=== PATIENT | male | born 1985 | race Hispanic/Latino ===

== ENCOUNTER 2018-12-10 20:08 | Emergency (ER) | payer BC ==
[2018-12-10 21:14] LABS: Urine Blood 1+ (NEG); Urine Glucose NEGATIVE (NEG); Urine Protein NEGATIVE (NEG); Urine Specific Gravity >1.030 (1.005-1.030); Urine pH 5.5 (5.0-7.0)
--- NOTE | 2018-12-10 21:29 | RAD REPORT ---
EXAM DESCRIPTION: US - Scrotum Testicles - 12/10/2018 9:05 pm CLINICAL HISTORY: Scrotal pain COMPARISON: None FINDINGS: Right testicle measures 4.4 x 2.1 x 2.8 centimeters. Echotexture is homogeneous. Normal bl ood flow Left testicle measures 3.9 x 1.9 x 2.8 centimeters. Echotexture is homogeneous. Normal blood flow The epididymides are normal in size and echotexture. Normal blood flow is seen. Left varicocele IMPRESSION: Left varicocele
[2018-12-10 21:55] LABS: Urine Bacteria <20 /HPF (NONE SEEN); Urine Culture Reflex Order NOT NEEDED; Urine Mucus SLIGHT /HPF (NONE SEEN); Urine RBC <5 /HPF (NONE SEEN)
[2018-12-10 22:03] LABS: Absolute Monocytes 0.7 K/uL (0.1-1.3); Hematocrit 48.1 % (39.6-49.0); Lymphocytes % 33.9 % (15.3-44.8); MPV 7.8 fL (7.6-11.3); Monocytes % 7.6 % (3.3-12.3); RBC Red Blood Cell Count 5.44 M/uL (4.33-5.43)
--- NOTE | 2018-12-10 22:14 | RAD REPORT ---
EXAM DESCRIPTION: CT - Stone Protocol - 12/10/2018 9:39 pm CLINICAL HISTORY: Abdominal pain. Right groin pain COMPARISON: 2014 TECHNIQUE: Computed axial tomography of the abdomen pelvis was obtained without oral or IV contrast. Lack of IV and oral contrast limits evaluation of solid organs, bowel, and vessels. Coronal reformat harshal images were obtained and reviewed. All CT scans are performed using dose optimization technique as appropriate and may include automated exposure control or mA/KV adjustment according to patient size. FINDINGS: A renal calculus is not seen. An ureteral calculus is not noted. A bladder calculus is not present. Fatty liver Spleen, pancreas and adrenals appear grossly normal There is no evidence of diverticulitis. The appendix appears normal Postsurgical changes of an umbilical hernia repair Moderate right inguinal hernia contains fat. A small left inguinal hernia is noted. Varicoceles are noted within the left scrotum IMPRESSION: Negative for a genitourinary calculus Moderate right and small left inguinal hernias Left varicocele
[2018-12-10 22:21] LABS: Albumin 4.1 g/dL (3.4-5.0); Bilirubin Direct 0.2 mg/dL (0-0.2); Bilirubin Total 0.6 mg/dL (0.2-1.0); Potassium 3.4 mmol/L (3.5-5.1); Protein, Total 7.8 g/dL (6.4-8.2)
--- NOTE | 2018-12-10 22:32 | EDPHYS ---
Physician Documentation [facility] Name: Herb Zarate Age: 33 yrs Sex: Male : 1985 Arrival Date: 12/10/2018 Time: 20:12 Bed 17 Private MD: ED Physician Raciel Miles HPI: 12/10 20:30 This 33 yrs old Male presents to ER via Ambulatory with complaints of cp Abdominal Pain. 20:30 The patient presents with right groin pain. cp 20:30 Onset: The symptoms/episode began/occurred 1 month(s) ago. The symptoms do not radiate. cp Associated signs and symptoms: Pertinent positives: intermittent right testicle pain, Pertinent negatives: diarrhea, dysuria, fever, shortness of breath, vomiting. Modifying factors: the symptoms are aggravated by walking. Severity of pain: in the emergency department the pain has improved mildly. 20:30 Patient reports concern for "growth" on right testicle. cp Historical: - Allergies: 20:13 No Known Allergies; jb4 - Home Meds: 20:13 None [Active]; jb4 - PMHx: 20:13 Umbilical hernia; jb4 - PSHx: 20:13 Hernia repair; jb4 - Immunization history:: Adult Immunizations up to date. - Social history:: Smoking status: Patient/guardian denies using tobacco, Patient uses alcohol, occasionally. - Ebola Screening: : No symptoms or risks identified at this time. ROS: 20:35 Constitutional: Negative for body aches, chills, fever, poor PO intake. cp 20:35 Eyes: Negative for injury, pain, redness, and discharge. cp 20:35 ENT: Negative for drainage from ear(s), ear pain, sore throat, difficulty swallowing, cp difficulty handling secretions. 20:35 Cardiovascular: Negative for chest pain, edema, palpitations. 20:35 Respiratory: Negative for cough, shortness of breath, wheezing. 20:35 Abdomen/GI: Negative for abdominal pain, nausea, vomiting, and diarrhea, black/tarry stool, rectal bleeding. 20:35 Back: Negative for pain at rest, pain with movement, radiated pain. 20:35 : Positive for testicular pain right groin pain, Negative for urinary symptoms, hematuria. 20:35 Skin: Negative for cellulitis, rash. 20:35 Neuro: Negative for altered mental status, headache, weakness. 20:35 All other systems are negative. Exam: 20:40 Constitutional: The patient appears in no acute distress, alert, awake, non-toxic, well cp developed, well nourished. 20:40 Head/Face: Normocephalic, atraumatic. cp 20:40 Eyes: Periorbital structures: appear normal, Conjunctiva: normal, no exudate, no injection, Sclera: no appreciated abnormality, Lids and lashes: appear normal, bilaterally. 20:40 ENT: External ear(s): are unremarkable, Nose: is normal, Mouth: Lips: moist, Oral mucosa: moist. 20:40 Chest/axilla: Inspection: normal. 20:40 Cardiovascular: Rate: normal, Rhythm: regular. 20:40 Respiratory: the patient does not display signs of respiratory distress, Respirations: normal, no use of accessory muscles, no retractions, no splinting, no tachypnea, Breath sounds: are clear throughout, no decreased breath sounds, no stridor, no wheezing. 20:40 Abdomen/GI: Inspection: abdomen appears normal, Bowel sounds: active, all quadrants, Palpation: abdomen is soft and non-tender, in all quadrants, rebound tenderness, is not appreciated, involuntary guarding, is not appreciated. 20:40 : Male external genitalia: Circumcision noted. swelling: is not appreciated, tenderness, of the right testicle is noted, that is mild. 20:40 Skin: cellulitis, is not appreciated, no rash present. Vital Signs: 20:13 BP 123 / 89; Pulse 88; Resp 16; Temp 97.9(O); Pulse Ox 95% on R/A; Weight 127.01 kg jb4 (R); Height 6 ft. 0 in. (182.88 cm) (R); Pain 2/10; 21:00 BP 115 / 88; Pulse 74; Resp 16; Pulse Ox 95% on R/A; jb4 22:00 BP 128 / 85; Pulse 82; Resp 16; Pulse Ox 95% on R/A; jb4 23:09 BP 124 / 79; Pulse 68; Resp 16; Pulse Ox 96% on R/A; jb4 20:13 Body Mass Index 37.97 (127.01 kg, 182.88 cm) jb4 MDM: 20:17 Patient medically screened. cp 21:30 Differential diagnosis: appendicitis, Testicular Torsion, Ureterolithiasis, urinary cp tract infection, epididymitis, orchitis, STD, hernia. 22:30 Data reviewed: vital signs, nurses notes, lab test result(s), radiologic studies, CT cp scan, ultrasound. 22:30 Counseling: I had a detailed discussion with the patient and/or guardian regarding: the cp historical points, exam findings, and any diagnostic results supporting the discharge/admit diagnosis, lab results, radiology results, the need for outpatient follow up, a general surgeon, to return to the emergency department if symptoms worsen or persist or if there are any questions or concerns that arise at home. Response to treatment: the patient's symptoms have markedly improved after treatment, and as a result, I will discharge patient. 12/10 20:24 Order name: Urine Microscopic Only; Complete Time: 22:23 cp 12/10 20:24 Order name: GC (GONORR/CHLAMYDIA) Probe cp 12/10 20:49 Order name: Urine Dipstick--Ancillary (enter results); Complete Time: 21:21 ds4 12/10 21:22 Interpretation: Normal except: USPGR >1.030; UBLD 1+. cp 12/10 21:22 Order name: Basic Metabolic Panel; Complete Time: 22:23 cp 12/10 22:23 Interpretation: Normal except: NA 146; K 3.4; CL 108; BUN 19; GFR 78. cp 12/10 21:22 Order name: CBC with Diff; Complete Time: 22:23 cp 12/10 22:24 Interpretation: Normal except: RBC 5.44. cp 12/10 21:22 Order name: Creatinine for Radiology; Complete Time: 22:23 cp 12/10 20:24 Order name: Urine Dipstick-Ancillary (obtain specimen); Complete Time: 20:33 cp 12/10 20:24 Order name: US Scrotum Testicles; Complete Time: 22:23 cp 12/10 21:22 Order name: CT Stone Protocol; Complete Time: 22:23 cp 12/10 21:22 Order name: Hepatic Function; Complete Time: 22:23 cp 12/10 22:24 Interpretation: Normal except: ALT 83; GLOB 3.7. cp 12/10 21:22 Order name: Lipase; Complete Time: 22:23 cp 12/10 21:22 Order name: IV Saline Lock; Complete Time: 21:58 cp 12/10 21:22 Order name: Labs collected and sent; Complete Time: 21:58 cp Administered Medications: 22:48 Drug: Rocephin (cefTRIAXone) 250 mg Route: IM; Site: right gluteus; jb4 23:08 Follow up: Response: No adverse reaction jb4 22:49 Drug: Zithromax 1 grams Route: PO; jb4 22:49 Follow up: Response: No adverse reaction jb4 22:49 Drug: Potassium Effervescent Tablet 25 mEq Route: PO; jb4 22:49 Follow up: Response: No adverse reaction jb4 Disposition: 12/11 03:30 Co-signature as Attending Physician, Raciel Miles MD. Disposition: 12/10/18 22:31 Discharged to Home. Impression: Bilateral inguinal hernia, without obstruction or gangrene. - Condition is Stable. - Discharge Instructions: Inguinal Hernia, Adult. - Medication Reconciliation Form, Thank You Letter, Antibiotic Education, Prescription Opioid Use form. - Follow up: Cortes Cates MD; When: 1 week; Reason: bilateral inguinal hernias. - Problem is new. - Symptoms have improved. Signatures: Dispatcher [employer] EDMS Tim Butler PA PA cp Melchor Rivera RN RN jb4 Starr, Gregory, MD MD Corrections: (The following items were deleted from the chart) 12/10 23:11 22:31 12/10/2018 22:31 Discharged to Home. Impression: Bilateral inguinal hernia, jb4 without obstruction or gangrene. Condition is Stable. Forms are Medication Reconciliation Form, Thank You Letter, Antibiotic Education, Prescription Opioid Use. Follow up: Cortes Cates; When: 1 week; Reason: bilateral inguinal hernias. Problem is new. Symptoms have improved. cp
--- NOTE | 2018-12-10 22:32 | ER ---
Nurse's Notes [facility] Name: Herb Zarate Age: 33 yrs Sex: Male : 1985 Arrival Date: 12/10/2018 Time: 20:12 Bed 17 Private MD: Diagnosis: Bilateral inguinal hernia, without obstruction or gangrene Presentation: 12/10 20:13 Presenting complaint: Patient states: I have been having groin pain for about a month jb4 now. It comes and goes, but I mostly notice it in the mornings and when I am walking. I also noticed what felt like a growth on my testicle about a month ago. 20:13 Transition of care: patient was not received from another setting of care. Onset of jb4 symptoms was October 16, 2018. Risk Assessment: Do you want to hurt yourself or someone else? Patient reports no desire to harm self or others. Initial Sepsis Screen: Does the patient meet any 2 criteria? No. Patient's initial sepsis screen is negative. Does the patient have a suspected source of infection? No. Patient's initial sepsis screen is negative. Care prior to arrival: None. 20:13 Method Of Arrival: Ambulatory jb4 20:13 Acuity: KEYSHAWN 3 jb4 Triage Assessment: 20:13 General: Appears in no apparent distress. comfortable, Behavior is calm, cooperative, jb4 appropriate for age. Pain: Complains of pain in groin Pain does not radiate. Pain currently is 2 out of 10 on a pain scale. at worst was 10 out of 10 on a pain scale. Quality of pain is described as When It is at its worst it feels like needles. It currently feels like a burning, numb, tingling sensation. Pain began 1 month ago. Is intermittent. EENT: No signs and/or symptoms were reported regarding the EENT system. Neuro: Level of Consciousness is awake, alert, obeys commands, Oriented to person, place, time, situation. Cardiovascular: Patient's skin is warm and dry. Respiratory: Airway is patent Respiratory effort is even, unlabored, Respiratory pattern is regular, symmetrical. GI: No signs and/or symptoms were reported involving the gastrointestinal system. : Reports Scrotal pain that has been present for one month. It worsens with movent and is worst after waking. Derm: Skin is intact, Skin is pink, warm \T\ dry. Musculoskeletal: Circulation, motion, and sensation intact. Historical: - Allergies: 20:13 No Known Allergies; jb4 - Home Meds: 20:13 None [Active]; jb4 - PMHx: 20:13 Umbilical hernia; jb4 - PSHx: 20:13 Hernia repair; jb4 - Immunization history:: Adult Immunizations up to date. - Social history:: Smoking status: Patient/guardian denies using tobacco, Patient uses alcohol, occasionally. - Ebola Screening: : No symptoms or risks identified at this time. Screenin:13 Abuse screen: Denies threats or abuse. Nutritional screening: No deficits noted. jb4 Tuberculosis screening: No symptoms or risk factors identified. Fall Risk None identified. Assessment: 20:13 General: See triage assessment.. jb4 21:00 Reassessment: Patient appears in no apparent distress at this time. Patient and/or jb4 family updated on plan of care and expected duration. Pain level reassessed. Patient is alert, oriented x 3, equal unlabored respirations, skin warm/dry/pink. 22:04 Reassessment: Patient appears in no apparent distress at this time. Patient and/or jb4 family updated on plan of care and expected duration. Pain level reassessed. Patient is alert, oriented x 3, equal unlabored respirations, skin warm/dry/pink. 22:48 Reassessment: Pt is on shot time. jb4 23:09 Reassessment: Patient appears in no apparent distress at this time. Patient and/or jb4 family updated on plan of care and expected duration. Pain level reassessed. Patient is alert, oriented x 3, equal unlabored respirations, skin warm/dry/pink. Vital Signs: 20:13 BP 123 / 89; Pulse 88; Resp 16; Temp 97.9(O); Pulse Ox 95% on R/A; Weight 127.01 kg jb4 (R); Height 6 ft. 0 in. (182.88 cm) (R); Pain 2/10; 21:00 BP 115 / 88; Pulse 74; Resp 16; Pulse Ox 95% on R/A; jb4 22:00 BP 128 / 85; Pulse 82; Resp 16; Pulse Ox 95% on R/A; jb4 23:09 BP 124 / 79; Pulse 68; Resp 16; Pulse Ox 96% on R/A; jb4 20:13 Body Mass Index 37.97 (127.01 kg, 182.88 cm) jb4 ED Course: 20:12 Patient arrived in ED. es 20:13 Arm band placed on right wrist. jb4 20:13 Patient has correct armband on for positive identification. Placed in gown. Bed in low jb4 position. Call light in reach. Side rails up X 1. Pulse ox on. NIBP on. 20:14 Melchor Rivera RN is Primary Nurse. jb4 20:14 Tim Butler PA is PHCP. cp 20:14 Raciel Miles MD is Attending Physician. cp 20:29 Triage completed. jb4 20:46 Urine Microscopic Only Sent. ds4 21:04 Ultrasound completed. Patient tolerated well. aa4 21:09 US Scrotum Testicles In Process Unspecified. EDMS 21:39 CT Stone Protocol In Process Unspecified. EDMS 21:39 CT completed. Patient tolerated procedure well. Patient moved to CT. Patient moved back hi from CT. 21:50 Inserted saline lock: 20 gauge in right antecubital area, using aseptic technique. ds4 Blood collected. 21:58 Lipase Sent. ds4 21:58 Hepatic Function Sent. ds4 21:58 Creatinine for Radiology Sent. ds4 21:58 CBC with Diff Sent. ds4 21:58 Basic Metabolic Panel Sent. ds4 22:30 Cortes Cates MD is Referral Physician. cp 23:09 No provider procedures requiring assistance completed. IV discontinued, intact, jb4 bleeding controlled. Administered Medications: 22:48 Drug: Rocephin (cefTRIAXone) 250 mg Route: IM; Site: right gluteus; jb4 23:08 Follow up: Response: No adverse reaction jb4 22:49 Drug: Zithromax 1 grams Route: PO; jb4 22:49 Follow up: Response: No adverse reaction jb4 22:49 Drug: Potassium Effervescent Tablet 25 mEq Route: PO; jb4 22:49 Follow up: Response: No adverse reaction jb4 Outcome: 22:31 Discharge ordered by . cp 23:09 Discharged to home ambulatory, with significant other. jb4 23:09 Condition: stable 23:09 Discharge instructions given to patient, significant other, Instructed on discharge instructions, follow up and referral plans. Demonstrated understanding of instructions, follow-up care. 23:11 Patient left the ED. jb4 Signatures: Dispatcher [employer] EDRuthie Arenas Amanda aa4 Joseph Rosenthal ds4 Tim Butler PA PA cp Bryson, James, RN RN jb4 Johnie Banda Corrections: (The following items were deleted from the chart) 23:11 20:13 : No signs and/or symptoms were reported regarding the genitourinary system. [id number]
[2018-12-10] MEDS ORDERED: CEFTRIAXONE 250 MG/VIAL ONE (22:45)
[2018-12-10] MEDS ORDERED: AZITHROMYCIN 250 MG TAB ONE (22:45)
[2018-12-10] MEDS ORDERED: WATER FOR INJ,STERILE 10 ML ONE (22:45)
[2018-12-10] MEDS ORDERED: POTASSIUM 25 MEQ EFFERV TAB ONE (22:45)
[2018-12-10 23:23] VITALS: TEMP 97.9
[2018-12-10 23:27] VITALS: BP 124/79; O2SAT 96
[2018-12-14 18:30] LABS: C.trachomatis RNA,TMA Not Detected (Not Detected)
== END 2018-12-10 23:11 | disposition home or self-care (01) ==
LOC: ER 20:08
DX: K40.20 Bilateral inguinal hernia, without obstruction or gangrene, not specified as recurrent (principal)
CPT/HCPCS: 36415; 74176; 76377; 76870; 80048; 80076; 81003; 81015; 83690; 85025; 87490; 87590; 96372; 99284; J0696

== ENCOUNTER 2024-11-10 10:24 | Emergency (ER) | payer BC, OTHER ==
--- OUTSIDE RECORDS SUMMARY | 2024-11-10 10:27 | XMS REPORT | Continuity of Care Document ---
Author Name Unknown Address [address] [place] [address] [facility] thconnect Address [address] [place] [address] Care Team Providers Care Freight Flow Sales Leader Name Role Phone Pcp, Patient Does Not Have A Primary Care Physic pippa Campaigns, Generic Provider Attending Clinician Unavailable GERMÁN RICE Attending Clinician Unavailable EGRMÁN RICE Attending Clinician Unavailable Germán Tamayo Attending Clinician [phone] GERMÁN RICE Admitting Clinician Unavailable Payers Payer Name Policy Type Policy Number Effective Date Expirati on Date Source Allergies, Adverse Reactions, Alerts Allergy Name Allergy Type Status Severity Reaction(s) Onset Date Inactive Date Treating Clinician Comments Source NO KNOWN ALLERGIE S Drug Class Active [facility] Social History Social Habit Start Date Stop Date Quantity Comments Source Sexual orientation U [facility] Sex assigned at 1985 00:00:00 1985 00:00:00 [facility] Smoking Status Start Date Stop Date Source Tobacco smoking consumption unknown [facility] Medications Ordered Medication Name Filled Medication Name Start Date Stop Date Current Medication? Ordering Clinician Indication Dosage Frequency Signature (SIG) Comments Components Source ketorolac (TORADOL) injection 30 mg 08-12 14:15: 00 08-12 13:51 :00 No 30mg 30 mg, Slow IV Push, ONCE, 1 dose, On Thu08/12/24 at 0915, Routine [facility] NaCl 0.9% (NS) bolus infusion 1,000 mL 08-12 14:15: 00 08-12 16:54 :00 No 1000mL at 999 mL/hr, 1,000 mL, IV Infusion, ONCE, 1 dose, On Thu08/12/24 at 0915, MARTA [facility] iopamidol (ISOVUE 370-500 mL) injection 85 mL 08-12 14:00: 00 08-12 14:15 :00 No [id number] 85mL 85 mL, Intravenou s, ONCE, 1 dose, On Thu08/12/24 at 0915, Routine [facility] naproxen 500 mg EC tablet 08-12 00:00: 00 Yes [id number] 500mg Take 1 tablet by mouth 2 (two) times daily as needed for Pain (scale 4-6). [facility] docusate (COLACE) 100 mg capsule 2014-11 00:00: 00 Yes 100mg Take 1 Cap by mouth daily. [facility] traMADOL (ULTRAM) 50 mg tablet 2014-11 00:00: 00 Yes 50mg Take 1 Tab by mouth every 6 (six) hours as needed for Pain (scale 4-6). [facility] Immunizations Ordered Immunization Name Filled Immunization Name Date Status Comments Source SARS-COV-2 COVID-19 MODERNA 12+ YRS VACCINE 2021-02-18 00:00:00 Completed [facility] SARS-COV-2 COVID-19 MODERNA 12+ YRS VACCINE 2021-02-18 00:00:00 Completed [facility] SARS-COV-2 COVID-19 MODERNA 12+ YRS VACCINE 2021-01-21 00:00:00 Completed [facility] SARS-COV-2 COVID-19 MODERNA 12+ YRS VACCINE 2021-01-21 00:00:00 Completed [facility] Vital Signs Vital Name Observation Time Observation Value Comments S ource Systolic blood pressure 2024-08-12 16:55:00 120 mm[Hg] [facility] Diastolic blood pressure 2024-08-12 16:55:00 81 mm[Hg] [facility] Heart rate 2024-08-12 16:55:00 54 /min [facility] Body temperature 2024-08-12 16:55:00 36.89 Linda [facility] Respiratory rate 2024-08-12 16:55:00 14 /min [facility] Oxygen saturation in Arterial blood by Pulse oximetry 2024-08-12 16:55:00 100 /min [facility] Body height 2024-08-12 13:18:00 182.9 cm [facility] Body weight 2024-08-12 13:18:00 104.327 kg [facility] BMI 2024-08-12 13:18:00 31.19 kg/m2 [facility] Procedures Procedure Date / Time Performed Performing Clinicia n Source US TESTICULAR TORSION 2024-08-12 14:58:06 Stewart Rice [facility] CT ABDOMEN PELVIS W CONTRAST 2024-08-12 14:14:18 Germán Rice [facility] LIPASE 2024-08-12 13:50:00 Germán Rice [facility] COMP. METABOLIC PANEL (44308) 2024-08-12 13:50:00 Germán Rice [facility] CBC WITH DIFF 2024-08-12 13:50:00 Germán Rice [facility] URINALYSIS 2024-08-12 13:50:00 Germán Rice [facility] Encounters Start Date/Time End Date/Time Encounter Type Admission Type Attending Clinicians Care Facility Care Department Encounter ID Source 2024-08-24 00:00:00 2024-08-24 10:43:01 Letter (Out) Campaigns, Generic Provider Campaigns, Generic Provider [facility] ([facility]) [id number] [facility] 2024-08-12 08:21:00 2024-08-12 11:57:00 Emergency X GERMÁN RICE ERICCA [facility] ERT [id number] [facility] 2024-08-12 08:21:00 2024-08-12 11:57:00 Emergency Germán Rice [facility] [id number] [facility] Results Test Description Test Time Test Comments Results Resul t Comments Source US TESTICULAR TORSION 2024-07-18 15:26:05 EXAM: US TESTICULAR TORSION HISTORY: 38 years-old Male; Provided indication: R testicle swollen/pain,r/o torsion . TECHNIQUE: Ultrasound imaging with color and spectral Doppler of thescrotum was performed. Nursing Manager images were obtained for the record. COMPARISON: Same date earlier CT abdomen pelvis FINDINGS:Right Testicle: The right testicle is normal in size, shape, andechotexture. The right testicle measures 4.1 x 2.4 x 3.1 cm, with a volumeof 16.1 mL. Normal arterial and venous waveforms are visualized. Normalflow is seen on color Doppler. No focal lesion is seen. Left Testicle: The left testicle is normal in size, shape, and echotexture.The left testicle measures 4.1 x 2 x 2.8 cm, with a volume of 11.8 mL.Normal arterial and venous waveforms are visualized. Normal flow is seen oncolor Doppler. No focal lesion is seen. Right Epididymis: The right epididymal head is normal in size anddemonstrates normal blood flow. Left Epididymis: The left epididymal head is normal in size anddemonstrates normal blood flow. There is bilateral fat-containing inguinal hernia, extending to thescrotum, more evident on the right.Left sided varicocele is also seen. [facility] CT ABDOMEN PELVIS W CONTRAST 2024-07-18 15:13:44 Ordering Physician: GERMÁN RICE History: RLQ abdominal pain (Age >= 14y) . Technique: CT of the abdomen and pelvis with IV Contrast.CT Scan done according to ALARA (As Low As Reasonably Achievable.) Comparison: none Findings: Spleen is normal. Adrenals are normal. Pancreas is normal.Gallbladder is normal.Liver is normal. There is no intrahepatic or extrahepatic biliary dilation. Kidneys enhance normally without hydronephrosis. Aorta is of normal caliber. Circumaortic left renal vein. Normal appendix. There is no bowel obstruction. There is no free gas. There is nosignificant adenopathy. Bilateral fat-containing inguinal hernias. Urinary bladder is normal. Prostate and seminal vesicles are normal. Limited views of the lung bases reveal mild bilateral posterior dependentatelectasis . Mild degenerative changes in the spine. [facility]* Test Item Value Reference Range Interpretation Comme nts LIPASE (test code = 2119230333) 105 U/L 0-220 Lab Interpretation (test cod e = 16593-3) Normal [facility] WITH [id number] 14:15:26* Test Item Value Reference Range Interpretation Comme nts WBC (test code = 6690-2) 6.08 4.20-10.70 RBC (test code = 789-8) 4.81 4.26-5.52 HGB (test code = 718-7) 14.3 g/dL 12.2-16.4 HCT (test code = 4544-3) 42.4 % 38.4-49.3 MCV (test code = 787-2) 88.1 fL 81.7-95.6 MCH (test code = 785-6) 29.7 pg 26.1-32.7 MCHC (test code = 786-4) 33.7 g/dL 31.2-35.0 RDW-SD (test code = 56748-1) 39.4 fL 38.5-51.6 RDW-CV (test code = 788-0) 12.2 % 12.1-15.4 PLT (test code = 777-3) 328 150-328 MPV (test code = 20925-1) 8.6 fL 9.8-13.0 L NRBC/100 WBC (test code = 1091730015) 0.0 0.0-10.0 NRBC x10^3 (test code = 8983715010) See_Comment [Automated messa ge] The system which generated this result transmitted reference range: 10*3/?L. The reference range was not used to interpret this result as normal/abnormal. GRAN MAT (NEUT) % (test code = 770-8) 56.0 % IMM GRAN % (test code = 7180221834) 0.70 % LYMPH % (test code = 736-9) 32.4 % MONO % (test code = 5905-5) 7.9 % EOS % (test code = 713-8) 2.5 % BASO % (test code = 706-2) 0.5 % GRAN MAT x10^3(ANC) (test code = 7014370849) 3.41 10*3/uL 1.99-6.95 IMM GRAN x10^3 (test code = 8549137758) 0.04 10*3/uL 0.00-0.06 LYMPH x10^3 (test code = 731-0) 1.97 10*3/uL 1.09-3.23 MONO x10^3 (test code = 742-7) 0.48 10*3/uL 0.36-1.02 EOS x10^3 (test code = 711-2) 0.15 10*3/uL 0.06-0.53 BASO x10^3 (test code = 704-7) 0.03 10*3/uL 0.01-0.09 Lab Interpretation (test code = 99236-8) Abnormal [facility]
[2024-11-10] MEDS ORDERED: MORPHINE 4 MG/ML SYR ONE (11:13)
[2024-11-10] MEDS ORDERED: ONDANSETRON 4 MG/2 ML VIAL ONE (11:13)
[2024-11-10] MEDS ORDERED: NA CHLORIDE 0.9% 1,000 ML ONE (11:13)
[2024-11-10 11:36] LABS: Absolute Eosinophils 0.1 K/uL (0-0.5); Absolute Lymphocytes (CBC) 1.4 K/uL (0.7-4.9); Absolute Monocytes 0.3 K/uL (0.1-1.3); Absolute Neutrophil 3.2 K/uL (1.8-8.0); Basophils % 0.8 % (0-1.3); Eosinophils % 2.4 % (0-4.4); Hematocrit 43.9 % (39.6-49.0); Hemoglobin 14.8 g/dL (13.6-17.9); Lymphocytes % 27.9 % (15.3-44.8); MCH 29.8 pg (27.0-35.0); MCHC 33.8 g/dL (32.0-36.0); MCV 87.9 fL (80-100); MPV 7.6 fL (7.6-11.3); Monocytes % 6.8 % (3.3-12.3); Neutrophils % 62.1 % (41.7-73.7); Platelets 239 thou/uL (152-406); RBC Red Blood Cell Count 4.99 M/uL (4.33-5.43); Red Cell Distribution Width 13.4 % (12.1-15.2)
[2024-11-10 11:55] LABS: Albumin 3.8 g/dL (3.4-5.0); Albumin/Globulin Ratio 1.2 (1.1-1.8); Anion Gap 5.7 mEq/L (5.0-15.0); Bilirubin Total 0.8 mg/dL (0.2-1.0); Globulin 3.3 g/dL (2.3-3.5); Potassium 3.7 mEq/L (3.5-5.1); Protein, Total 7.1 g/dL (6.4-8.2)
--- NOTE | 2024-11-10 12:17 | RAD REPORT ---
EXAMINATION: CT Abdomen Pelvis W Contrast CLINICAL INDICATION: Male, 39 years old. hx inguinal hernia, no BM with nausea;Abd pain TECHNIQUE: CT abdomen and pelvis was performed, after the administration of IV contrast, [facility]. Axial, sagittal and coronal reconstructions were obtained. One or more of the following dose reduction techniques were used: Automated exposure control, adjustment of the mA and k V according to patient size, and iterative reconstruction. Unless otherwise specified, incidental findings do not require dedicated imaging follow-up. COMPARISON: 12/10/2018 FINDINGS: LOWER CHEST: The visualized lung bases are clear. LIVER: Normal in size and contour. No focal lesion. BILIARY SYSTEM: No suspicious abnormalities. SPLEEN: Normal size. No focal lesion. PANCREAS: No mass, ductal dilation, or tatianna-pancreatic fluid. ADRENALS: Normal; no mass. KIDNEYS: Normal size and contour. No hydronephrosis. URINARY BLADDER: Decompressed limiting evaluation. GASTROINTESTINAL TRACT: No evidence of free air, significant intra-abdominal free fluid, bowel obstru ction or abscess. APPENDIX: Normal appendix. LYMPH NODES: No lymphadenopathy. MUSCULOSKELETAL: No acute or suspicious osseous abnormality. ADDITIONAL FINDINGS: Progressive enlargement of the right fat-containing inguinal hernia, with its sc rotal component now measuring 5.3 x 4.2 cm in greatest axial dimensions, previously measured 4.6 x 3.5 cm. Protrusion of nondistended sigmoid colon towards the inguinal ring, with no evidence of desce nt along the canal. IMPRESSION: Interval enlargement of the fat-containing right inguinal hernia extending to the scrotum. A loop of the nondistended sigmoid colon protrudes towards the inguinal ring, with no evidence of the stent along the inguinal canal. No evidence of bowel obstruction or ileus.
[2024-11-10 12:23] LABS: Specific Gravity > 1.030 (1.005-1.030); Sqamous Epithelial None Seen /HPF (None Seen); Urine Bacteria None Seen /HPF (<20); Urine Bilirubin NEGATIVE (Negative); Urine Blood Negative (Negative); Urine Clarity Clear (Clear); Urine Color Yellow (Yellow); Urine Culture Reflex Order NOT NEEDED; Urine Glucose NEGATIVE (Negative); Urine Ketones NEGATIVE (Negative); Urine Microscopic Reflex YN ORDER UMIC; Urine Mucus 1+ /HPF (None Seen); Urine Nitrite NEGATIVE (Negative); Urine Protein TRACE (Negative); Urine Urobilinogen Normal (Normal); Urine WBC None Seen /HPF (<5)
--- NOTE | 2024-11-10 13:02 | EDPHYS ---
Physician Documentation [facility] Name: Herb Zarate Age: 39 yrs Sex: Male : 1985 Arrival Date: 11/10/2024 Time: 10:24 Bed 5 Private MD: ED Physician Bess Wilhelm HPI: 11/10 11:05 This 39 yrs old Male presents to ER via Ambulatory with complaints of Groin sd2 Pain. 11:05 39 yo M presents with CC of R groin pain for the past 2-3 days with inability to have a sd2 BM and nausea for the same period of time. Hx of inguinal hernia to the area. Was told at [place] it would need to be repaired 2-3 weeks ago but has not been able to make it in for an appointment. Took Ibuprofen at home this morning without relief. . Historical: - Allergies: 10:30 No Known Allergies; iw - Home Meds: 10:30 None [Active]; iw - PMHx: 10:30 Umbilical hernia; iw - PSHx: 10:30 hernia; iw - Immunization history:: Adult Immunizations up to date. - Infectious Disease History:: Denies. - Social history:: Smoking status: Reported history of juuling and/or vaping. ROS: 11:05 Constitutional: Negative for fever, chills, and weight loss, Eyes: Negative for injury, sd2 pain, redness, and discharge, Cardiovascular: Negative for chest pain, palpitations, and edema, Respiratory: Negative for shortness of breath, cough, wheezing. 11:05 : Negative for dysuria, frequency or hematuria. MS/Extremity: Negative for injury and deformity, Skin: Negative for injury, rash, and discoloration, Neuro: Negative for headache, numbness and tingling. 11:05 Abdomen/GI: Positive for abdominal pain, nausea, constipation, Negative for vomiting, diarrhea, Exam: 11:05 Constitutional: This is a well developed, well nourished patient who is awake, alert, sd2 and in no acute distress. Head/Face: Normocephalic, atraumatic. Eyes: EOMI, normal conjunctiva bilaterally Chest/axilla: Normal chest wall appearance and motion. Nontender with no deformity. Cardiovascular: Regular rate and rhythm with a normal S1 and S2. No gallops, murmurs, or rubs. 2+ distal pulses. Respiratory: Lungs have equal breath sounds bilaterally, clear to auscultation and percussion. No rales, rhonchi or wheezes noted. No increased work of breathing, no retractions or nasal flaring. Abdomen/GI: Soft, non-tender, with normal bowel sounds. No guarding or rebound. No evidence of tenderness throughout. Male : Normal genitalia with no discharge or lesions. No scrotal swelling or edema. Palpable small inguinal hernia noted to the right side with associated TTP. No overlying skin changes. Skin: Warm, dry with normal turgor. Normal color with no rashes, no lesions, and no evidence of cellulitis. MS/ Extremity: Pulses equal, no cyanosis. Neurovascular intact. Full, normal range of motion. Psych: Awake, alert, with orientation to person, place and time. Behavior, mood, and affect are within normal limits. Vital Signs: 10:29 BP 129 / 84; Pulse 62; Resp 16; Temp 97.9; Pulse Ox 100% on R/A; Weight 99.79 kg; iw Height 6 ft. 0 in. ; Pain 10/10; 10:29 Body Mass Index 29.84 (99.79 kg, 182.88 cm) iw 10:29 Pain Scale: Adult iw MDM: 10:32 Medical Screening Exam initiated sd2 11:05 Differential diagnosis: incarcerated hernia, SBO, appendicitis, diverticulitis, colitis sd2 among others. Data reviewed: vital signs, nurses notes, lab test result(s), radiologic studies. I considered the following discharge prescriptions or medication management in the emergency department Medications were administered in the Emergency Department. See MAR. Historians other than the Patient: Spouse/Significant Other: at BS. 12:58 Management of patient was discussed with the following: Collection Systems Worker: Dr. Yeager, General sd2 Surgery, states no emergent surgical intervention needed based on CT findings. Recommends outpatient follow up and pain control. . Counseling: I had a detailed discussion with the patient and/or guardian regarding the historical points, exam findings, and any diagnostic results supporting the discharge/admit diagnosis, lab results, radiology results, the need for outpatient follow up, to return to the emergency department if symptoms worsen or persist or if there are any questions or concerns that arise at home. ED course: Advised patient of need for close follow up with General Surgery. Will dc with Tylenol #3 and Ibuprofen 800 mg. calling surgeon's office now to make follow up appointment. Pain well controlled at this time and hernia appears reduced. . 11/10 11:03 Order name: CBC with Diff; Complete Time: 12:35 sd2 11/10 11:03 Order name: CMP; Complete Time: 12:35 sd2 11/10 11:03 Order name: Lipase; Complete Time: 12:35 sd2 11/10 11:03 Order name: Urinalysis w/ reflexes; Complete Time: 12:35 sd2 11/10 11:03 Order name: CT Abd/Pelvis - IV Contrast Only; Complete Time: 12:35 sd2 Administered Medications: 11:28 Drug: morphine IVP or IV 4 mg IVP once over 4 mins Route: IVP; Infused Over: 4 mins; ko1 Site: right antecubital; 11:28 Drug: Ondansetron IVP 4 mg IVP once; over 2 minutes Route: IVP; Site: right antecubital;ko1 11:28 Drug: NS 0.9% IV 1000 ml IV at 1 bolus Per protocol; to be given as a bolus over 60 ko1 minutes Route: IV; Rate: 1 bolus; Site: right antecubital; 13:16 Drug: Hydrocodone-Acetaminophen PO (7.5 mg-325 mg) 1 tabs PO once Route: PO; iw Disposition Summary: 11/10/24 13:02 Discharge Ordered Problem: an acute exacerbation sd2 Condition: Stable sd2 Diagnosis - Unilateral inguinal hernia, without obstruction or gangrene sd2 Followup: sd2 - With: Jayy Yeager MD - When: Tomorrow - Reason: Recheck today's complaints, Continuance of care Discharge Instructions: - Discharge Summary Sheet sd2 Forms: - Work release form iw - Medication Reconciliation Form sd2 - Antibiotic Education sd2 - Prescription Opioid Use sd2 - Patient Portal Instructions sd2 - Leadership Thank You Letter sd2 Prescriptions: - acetaminophen-codeine 300-60 mg Oral tablet - take 1 tablet ORAL route every 4 to 6 hours as needed for pain; 12 tablet; sd2 Refills: 0, Product Selection Permitted - Ibuprofen 800 mg Oral tablet - take 1 tablet ORAL route every 8 hours As needed take with food; 15 tablet; sd2 Refills: 0, Product Selection Permitted Signatures: Dispatcher [employer] EDMS Johanna Lindsay, Bess Vazquez RN, MD MD sd2 Yecenia Crespo RN RN ko1 Corrections: (The following items were deleted from the chart) 11: 11:04 CBC+H.LAB.BRZ ordered. EDMS EDMS 11:04 11:04 COMPREHENSIVE METABOLIC PANEL+C.LAB.BRZ ordered. EDMS EDMS 11: 11:04 LIPASE+C.LAB.BRZ ordered. EDMS EDMS 11:04 11:04 Urinalysis+U.LAB.BRZ ordered. EDMS EDMS 11:04 11:04 Abdomen Pelvis W Con+CT.RAD.BRZ ordered. EDMS EDMS
--- NOTE | 2024-11-10 13:02 | ER ---
Nurse's Notes [facility] Name: Herb Zarate Age: 39 yrs Sex: Male : 1985 Arrival Date: 11/10/2024 Time: 10:24 Bed 5 Private MD: Diagnosis: Unilateral inguinal hernia, without obstruction or gangrene Presentation: 11/10 10:29 Chief complaint: Patient states: having extreme pain in my genitals and right abd/groin iw area , started Thursday , right testicle is enlarged. Coronavirus screen: At this time, the client does not indicate any symptoms associated with coronavirus-19. Ebola Screen: No symptoms or risks identified at this time. Initial Sepsis Screen: Does the patient meet any 2 criteria? No. Patient's initial sepsis screen is negative. Does the patient have a suspected source of infection? No. Patient's initial sepsis screen is negative. Risk Assessment: Do you want to hurt yourself or someone else? Patient reports no desire to harm self or others. Onset of symptoms was November 06, 2024. 10:29 Method Of Arrival: Ambulatory iw 10:29 Acuity: KEYSHAWN 3 iw Historical: - Allergies: 10:30 No Known Allergies; iw - Home Meds: 10:30 None [Active]; iw - PMHx: 10:30 Umbilical hernia; iw - PSHx: 10:30 hernia; iw - Immunization history:: Adult Immunizations up to date. - Infectious Disease History:: Denies. - Social history:: Smoking status: Reported history of juuling and/or vaping. Screenin:46 [facility] ED Fall Risk Assessment (Adult) History of falling in the last 3 months, ko1 including since admission No falls in past 3 months (0 pts) Confusion or Disorientation No (0 pts) Intoxicated or Sedated No (0 pts) Impaired Gait No (0 pts) Mobility Assist Device Used No (0 pt) Altered Elimination No (0 pt) Score/Fall Risk Level 0 - 2 = Low Risk Oriented to surroundings, Maintained a safe environment, Educated pt \T\ family on fall prevention, incl call for assistance when getting out of bed, Assessed \T\ reinforced patient's understanding of fall precautions, Hourly rounding (assess needs \T\ fall precautionary measures) done. Abuse screen: Denies threats or abuse. Denies injuries from another. Nutritional screening: No deficits noted. Tuberculosis screening: No symptoms or risk factors identified. Vital Signs: 10:29 BP 129 / 84; Pulse 62; Resp 16; Temp 97.9; Pulse Ox 100% on R/A; Weight 99.79 kg; iw Height 6 ft. 0 in. ; Pain 10/10; 10:29 Body Mass Index 29.84 (99.79 kg, 182.88 cm) iw 10:29 Pain Scale: Adult iw ED Course: 10:26 Patient arrived in ED. mr 10:27 Bess Wilhelm MD is Attending Physician. sd2 10:30 Triage completed. iw 10:31 Arm band placed on. iw 11:28 CMP Sent. ko1 11:28 Lipase Sent. ko1 11:28 CBC with Diff Sent. ko1 11:29 Yecenia Crespo, KAHLIL is Primary Nurse. ko1 11:29 Initial lab(s) drawn, by me, sent to lab. Inserted saline lock: 20 gauge in right ko1 antecubital area, using aseptic technique. Blood collected. Flushed with 10 mL NS. 11:46 Patient has correct armband on for positive identification. Placed in gown. Bed in low ko1 position. Call light in reach. Side rails up X2. Provided Education on: labs. Pulse ox on. NIBP on. Door closed. Noise minimized. Lights dimmed. Warm blanket given. Pillow given. 12:04 Urinalysis w/ reflexes Sent. ld1 12:08 CT Abd/Pelvis - IV Contrast Only In Process Unspecified. EDMS 13:01 Jayy Yeager MD is Referral Physician. sd2 Administered Medications: 11:28 Drug: morphine IVP or IV 4 mg IVP once over 4 mins Route: IVP; Infused Over: 4 mins; ko1 Site: right antecubital; 11:28 Drug: Ondansetron IVP 4 mg IVP once; over 2 minutes Route: IVP; Site: right antecubital;ko1 11:28 Drug: NS 0.9% IV 1000 ml IV at 1 bolus Per protocol; to be given as a bolus over 60 ko1 minutes Route: IV; Rate: 1 bolus; Site: right antecubital; 13:16 Drug: Hydrocodone-Acetaminophen PO (7.5 mg-325 mg) 1 tabs PO once Route: PO; iw Outcome: 13:02 Discharge ordered by MD. guerrero 13:30 Patient left the ED. iw Signatures: Dispatcher [employer] EDTiffanie Jordan, Saeid Breaux mr Johanna Lindsay, Michelle Hardy RN, RN RN [email or web address] Bess Wilhelm MD MD sd2 Yecenia Crespo, RN RN ko1
[2024-11-10] MEDS ORDERED: HYDROCODONE/APAP 7.5/325 MG TAB ONE (13:10)
[2024-11-10 13:34] VITALS: BP 129/84; TEMP 97.9; O2SAT 100
== END 2024-11-10 13:30 | disposition home or self-care (01) ==
LOC: ER 10:24
DX: K40.90 Unilateral inguinal hernia, without obstruction or gangrene, not specified as recurrent (principal)
CPT/HCPCS: 85025; 81001; 36415; 83690; 80053; 74177; 96375; 96374; 99284; Q9967; J2405; J7030

== ENCOUNTER 2024-11-10 18:02 | Emergency (ER) | payer OTHER ==
--- OUTSIDE RECORDS SUMMARY | 2024-11-10 18:05 | XMS REPORT | Continuity of Care Document ---
Author Name Unknown Address [address] [facility] [address] [place] [address] [facility] thconnect Address [address] [facility] [address] [place] [address] Care Team Providers Care Publications Manager Name Role Phone Pcp, Patient Does Not Have A Primary Care Physic pippa Campaigns, Generic Provider Attending Clinician Unavailable GERMÁN RICE Attending Clinician Unavailable GERMÁN RICE Attending Clinician Unavailable Germán Tamayo Attending Clinician [phone] GERMÁN RICE Admitting Clinician Unavailable Payers Payer Name Policy Type Policy Number Effective Date Expirati on Date Source Allergies, Adverse Reactions, Alerts Allergy Name Allergy Type Status Severity Reaction(s) Onset Date Inactive Date Treating Clinician Comments Source NO KNOWN ALLERGIE S Drug Class Active [facility] Social History Social Habit Start Date Stop Date Quantity Comments Source Sexual orientation U [facility] Sex assigned at 1985 00:00:00 1985 00:00:[address] [facility] Smoking Status Start Date Stop Date Source Tobacco smoking consumption unknown [facility] Medications Ordered Medication Name Filled Medication Name Start Date Stop Date Current Medication? Ordering Clinician Indication Dosage Frequency Signature (SIG) Comments Components Source ketorolac (TORADOL) injection 30 mg 08-12 14:15: 00 08-12 13:51 :00 No 30mg 30 mg, Slow IV Push, ONCE, 1 dose, On Thu08/12/24 at 0915, Routine [facility] NaCl 0.9% (NS) bolus infusion 1,000 mL 08-12 14:15: 00 08-12 16:54 :00 No 1000mL at 999 mL/hr, 1,000 mL, IV Infusion, ONCE, 1 dose, On Thu08/12/24 at 0915, MARTA [facility] iopamidol (ISOVUE 370-500 mL) injection 85 mL 08-12 14:00: 00 08-12 14:15 :00 No [id number] 85mL 85 mL, Intravenou s, ONCE, 1 dose, On Thu08/12/24 at 0915, Routine [facility] naproxen 500 mg EC tablet 08-12 00:00: 00 Yes [id number] 500mg Take 1 tablet by mouth 2 (two) times daily as needed for Pain (scale 4-6). [facility] docusate (COLACE) 100 mg capsule 2014-11 00:00: 00 Yes 100mg Take 1 Cap by mouth daily. [facility] traMADOL (ULTRAM) 50 mg tablet 2014-11 00:00: 00 Yes 50mg Take 1 Tab by mouth every 6 (six) hours as needed for Pain (scale 4-6). [facility] Immunizations Ordered Immunization Name Filled Immunization Name Date Status Comments Source SARS-COV-2 COVID-19 MODERNA 12+ YRS VACCINE 2021-02-18 00:00:[address] [facility] SARS-COV-2 COVID-19 MODERNA 12+ YRS VACCINE 2021-02-18 00:00:[address] [facility] SARS-COV-2 COVID-19 MODERNA 12+ YRS VACCINE 2021-01-21 00:00:[address] [facility] SARS-COV-2 COVID-19 MODERNA 12+ YRS VACCINE 2021-01-21 00:00:[address] [facility] Vital Signs Vital Name Observation Time Observation Value Comments S ource Systolic blood pressure 2024-08-12 16:55:00 120 mm[Hg] [facility] Diastolic blood pressure 2024-08-12 16:55:00 81 mm[Hg] [facility] Heart rate 2024-08-12 16:55:00 54 /min [facility] Body temperature 2024-08-12 16:55:[address] [facility] Respiratory rate 2024-08-12 16:55:00 14 /min [facility] Oxygen saturation in Arterial blood by Pulse oximetry 2024-08-12 16:55:00 100 /min [facility] Body height 2024-08-12 13:18:00 182.9 cm [facility] Body weight 2024-08-12 13:18:00 104.327 kg [facility] BMI 2024-08-12 13:18:00 31.19 kg/m2 [facility] Procedures Procedure Date / Time Performed Performing Clinicia n Source US TESTICULAR TORSION 2024-08-12 14:58:[address] [facility] CT ABDOMEN PELVIS W CONTRAST 2024-08-12 14:14:18 Germán Rice [facility] LIPASE 2024-08-12 13:50:00 Germán Rice [facility] COMP. METABOLIC PANEL ([id number]) 2024-08-12 13:50:00 Germán Rice [facility] CBC WITH DIFF 2024-08-12 13:50:00 Germán Rice [facility] URINALYSIS 2024-08-12 13:50:00 Germán Rice [facility] Encounters Start Date/Time End Date/Time Encounter Type Admission Type Attending Clinicians Care Facility Care Department Encounter ID Source 2024-08-24 00:00:00 2024-08-24 10:43:01 Letter (Out) Campaigns, Generic Provider Campaigns, Generic Provider [facility] ([facility]) [id number] [facility] 2024-08-12 08:21:00 2024-08-12 11:57:00 Emergency X GERMÁN RICE ERICCA [facility] ERT [id number] [facility] 2024-08-12 08:21:00 2024-08-12 11:57:00 Emergency Germán Rice [facility] [id number] [facility] Results Test Description Test Time Test Comments Results Resul t Comments Source US TESTICULAR TORSION 2024-07-18 15:26:05 EXAM: US TESTICULAR TORSION HISTORY: 38 years-old Male; Provided indication: R testicle swollen/pain,r/o torsion . TECHNIQUE: Ultrasound imaging with color and spectral Doppler of thescrotum was performed. Management Lead images were obtained for the record. COMPARISON: [...] the right.Left sided varicocele is also seen. [facility] CT ABDOMEN PELVIS W CONTRAST 2024-07-18 15:13:44 [...] . Mild degenerative changes in the [facility]. [facility]23[facility]06* Test Item Value Reference Range Interpretation Comme nts LIPASE (test code = 4360806757) 105 U/L 0-220 Lab Interpretation (test cod e = 52521-6) Normal [facility] [id number] 14:15:26* Test Item Value Reference Range Interpretation [...] 33.7 g/dL 31.2-35.0 RDW-SD (test code = 21730-8) 39.4 fL 38.5-51.6 RDW-CV (test code = 788-0) 12.2 % 12.1-15.4 PLT (test code = 777-3) 328 150-328 MPV (test code = 57152-4) 8.6 fL 9.8-13.0 L NRBC/100 WBC (test code = 2271250837) 0.0 0.0-10.0 NRBC x10^3 (test code = 3124380458) See_Comment [Automated messa ge] The system which generated this result transmitted reference range: 10*3/?L. The reference range was not used to interpret this result as normal/abnormal. GRAN MAT (NEUT) % (test code = 770-8) 56.0 % IMM GRAN % (test code = 8042183632) 0.70 % LYMPH % (test code = 736-9) 32.4 % MONO % (test code = 5905-5) 7.9 % EOS % (test code = 713-8) 2.5 % BASO % (test code = 706-2) 0.5 % GRAN MAT x10^3(ANC) (test code = 6442842499) 3.41 10*3/uL 1.99-6.95 IMM GRAN x10^3 (test code = 7333967600) 0.04 10*3/uL 0.00-0.06 LYMPH x10^3 (test code = 731-0) 1.97 10*3/uL 1.09-3.23 MONO x10^3 (test code = 742-7) 0.48 10*3/uL 0.36-1.02 EOS x10^3 (test code = 711-2) 0.15 10*3/uL 0.06-0.53 BASO x10^3 (test code = 704-7) 0.03 10*3/uL 0.01-0.09 Lab Interpretation (test code = 87313-2) Abnormal [facility]
[2024-11-10] MEDS ORDERED: ONDANSETRON 4 MG/2 ML VIAL ONE (18:59)
[2024-11-10] MEDS ORDERED: KETOROLAC 30 MG/ML INJ ONE (18:59)
[2024-11-10] MEDS ORDERED: NA CHLORIDE 0.9% 1,000 ML ONE (18:59)
[2024-11-10 19:07] LABS: Absolute Basophils 0.1 K/uL (0-0.5); Absolute Eosinophils 0.1 K/uL (0-0.5); Absolute Lymphocytes (CBC) 1.9 K/uL (0.7-4.9); Absolute Monocytes 0.5 K/uL (0.1-1.3); Absolute Neutrophil 4.4 K/uL (1.8-8.0); Basophils % 0.8 % (0-1.3); Eosinophils % 1.7 % (0-4.4); Hematocrit 43.3 % (39.6-49.0); Hemoglobin 14.8 g/dL (13.6-17.9); Lymphocytes % 27.1 % (15.3-44.8); MCH 29.8 pg (27.0-35.0); MCHC 34.1 g/dL (32.0-36.0); MCV 87.3 fL (80-100); MPV 7.7 fL (7.6-11.3); Monocytes % 7.7 % (3.3-12.3); Neutrophils % 62.7 % (41.7-73.7); Platelets 232 thou/uL (152-406); RBC Red Blood Cell Count 4.96 M/uL (4.33-5.43); Red Cell Distribution Width 13.1 % (12.1-15.2)
[2024-11-10 19:26] LABS: Albumin 3.8 g/dL (3.4-5.0); Albumin/Globulin Ratio 1.2 (1.1-1.8); Anion Gap 8.5 mEq/L (5.0-15.0); Bilirubin Total 0.9 mg/dL (0.2-1.0); Globulin 3.3 g/dL (2.3-3.5); Potassium 3.5 mEq/L (3.5-5.1); Protein, Total 7.1 g/dL (6.4-8.2)
[2024-11-10 19:56] LABS: Specific Gravity > 1.030 (1.005-1.030); Sqamous Epithelial None Seen /HPF (None Seen); Urine Bacteria None Seen /HPF (<20); Urine Bilirubin NEGATIVE (Negative); Urine Blood Negative (Negative); Urine Clarity Clear (Clear); Urine Color Light-Yellow (Yellow); Urine Crystals Unidentified Few /HPF (None Seen); Urine Culture Reflex Order NOT NEEDED; Urine Glucose NEGATIVE (Negative); Urine Ketones 1+ (Negative); Urine Microscopic Reflex YN ORDER UMIC; Urine Mucus Slight /HPF (None Seen); Urine Nitrite NEGATIVE (Negative); Urine Protein TRACE (Negative); Urine Urobilinogen Normal (Normal); Urine WBC <5 /HPF (<5); Urine Yeast (Budding) Trace /HPF (None Seen)
--- NOTE | 2024-11-10 20:39 | RAD REPORT ---
EXAMINATION: ULTRASOUND DUPLEX OF SCROTUM AND TESTICLES CLINICAL INDICATION: Male, 39 years, SWELLING TECHNIQUE: Duplex scan of the scrotal contents was performed including real-time color and spectral D oppler ultrasonography with arterial inflow and venous outflow. COMPARISON: No prior exam. FINDINGS: RIGHT TESTICLE AND EPIDIDYMIS: The right testicle is normal in size, measuring 4.0 x 3.0 x 2.2 cm. Normal, homogeneous echotexture with no focal lesion seen. The right epididymis is normal. Color Doppler flow in the right testicle is normal. LEFT TESTICLE AND EPIDIDYMIS: The left testicle is normal in size, measuring 4.1 x 2.5 x 2.1 cm. Normal, homogeneous echotexture with no focal lesion seen. The left epididymis is normal. Color Doppler flow in the left testicle is normal. ADDITIONAL FINDINGS: None. IMPRESSION: No acute or significant abnormalities.
[2024-11-10] MEDS ORDERED: PROMETHAZINE INJ 25 MG/ML AMP ONE (21:07)
[2024-11-10] MEDS ORDERED: HYDROCODONE/APAP 10/325 TAB ONE (21:08)
--- NOTE | 2024-11-10 21:36 | EDPHYS ---
Physician Documentation [facility] Name: Herb Zarate Age: 39 yrs Sex: Male : 1985 Arrival Date: 11/10/2024 Time: 18:02 Bed 19 Private MD: ED Physician Betito Penn HPI: 11/10 18:50 This 39 yrs old Male presents to ER via Ambulatory with complaints of cp Abdominal Pain. 18:50 The patient presents with abdominal pain in the lower abdomen. cp 18:50 Onset: The symptoms/episode began/occurred gradually, and became worse today. cp Associated signs and symptoms: Pertinent positives: nausea and vomiting. The patient has been recently seen at the [facility] Emergency Department, today, for similar complaints labs were performed, CT scan was performed, diagnosed with hernia and discharged to f/u with surgery. Historical: - Allergies: 18:36 No Known Allergies; me1 - PMHx: 18:36 Umbilical hernia; me1 - PSHx: 18:36 hernia; me1 - Immunization history:: Adult Immunizations up to date. - Infectious Disease History:: Denies. - Social history:: Smoking status: Reported history of juuling and/or vaping. ROS: 18:55 Constitutional: Negative for body aches, chills, fever, poor PO intake, cp 18:55 Eyes: Negative for injury, pain, redness, and discharge, cp 18:55 Cardiovascular: Negative for chest pain, 18:55 Respiratory: Negative for cough, shortness of breath, wheezing, 18:55 Abdomen/GI: Positive for abdominal pain, nausea and vomiting, 18:55 Back: Negative for pain at rest, pain with movement, 18:55 : Positive for testicular pain of the right testicle, 18:55 Neuro: Negative for altered mental status, headache, weakness, 18:55 All other systems are negative, Exam: 19:00 Constitutional: The patient appears in no acute distress, alert, awake, non-toxic, well cp developed, well nourished, uncomfortable, 19:00 Head/Face: Normocephalic, atraumatic. cp 19:00 Eyes: Periorbital structures: appear normal, Conjunctiva: normal, no exudate, no injection, Sclera: no appreciated abnormality, Lids and lashes: appear normal, bilaterally, 19:00 ENT: External ear(s): are unremarkable, Nose: is normal, Mouth: Lips: moist, Oral mucosa: moist, Posterior pharynx: Airway: no evidence of obstruction, patent, 19:00 Chest/axilla: Inspection: normal, 19:00 Cardiovascular: Rate: normal, 19:00 Respiratory: the patient does not display signs of respiratory distress, Respirations: normal, no use of accessory muscles, no retractions, labored breathing, is not present, Breath sounds: are clear throughout, no decreased breath sounds, no stridor, no wheezing, 19:00 Abdomen/GI: Inspection: abdomen appears normal, Bowel sounds: active, all quadrants, Palpation: soft, in all quadrants, mild abdominal tenderness, in the right lower quadrant and left lower quadrant, voluntary guarding, is not appreciated, involuntary guarding, is not appreciated, Hernia: noted in the right inguinal area, small, tender, Vital Signs: 18:34 BP 132 / 91; Pulse 64; Resp 17; Temp 97.4; Pulse Ox 100% ; me1 19:00 BP 119 / 82; Pulse 57; Resp 16; Pulse Ox 96% ; me1 20:00 BP 122 / 80; Pulse 59; Resp 14; Pulse Ox 97% ; me1 20:45 Pain 6/10; me1 21:00 BP 127 / 82; Pulse 63; Resp 14; Pulse Ox 96% ; me1 21:30 BP 110 / 78; Pulse 64; Resp 17; Temp 98.4; Pulse Ox 96% on R/A; me1 20:45 Pain Scale: Adult [facility] MDM: 18:23 Medical Screening Exam initiated cp 19:00 Differential diagnosis: Pyelonephritis, Testicular Torsion, Ureterolithiasis, urinary cp tract infection, incarcerated hernia. 21:34 Data reviewed: vital signs, nurses notes, lab test result(s), and as a result, I will discharge patient. 21:34 I considered the following discharge prescriptions or medication management in the emergency department Medications were administered in the Emergency Department. See MAR. Counseling: I had a detailed discussion with the patient and/or guardian regarding the historical points, exam findings, and any diagnostic results supporting the discharge/admit diagnosis, lab results, the need for outpatient follow up, for definitive care, a general surgeon, to return to the emergency department if symptoms worsen or persist or if there are any questions or concerns that arise at home. Response to treatment: the patient's symptoms have mildly improved after treatment, nausea and pain improved, vomiting resolved, and as a result, I will discharge patient. 11/10 18:43 Order name: CBC with Diff; Complete Time: 19:25 cp 11/10 19:25 Interpretation: Reviewed. cp 11/10 18:43 Order name: CMP; Complete Time: 20:13 cp 11/10 18:43 Order name: Lipase; Complete Time: 20:13 cp 11/10 18:43 Order name: Urinalysis w/ reflexes; Complete Time: 20:13 cp 11/10 20:13 Interpretation: Normal except: Urine SG > 1.030; UKET 1+; UPH 8.0; UPROT TRACE; URBC cp 5-10; BYST Trace. 11/10 19:25 Order name: US Scrotum Testicles; Complete Time: 20:53 cp 11/10 20:53 Interpretation: Report reviewed. 11/10 18:43 Order name: IV Saline Lock; Complete Time: 19:08 11/10 18:43 Order name: Labs collected and sent; Complete Time: 19:08 cp 11/10 20:54 Order name: PO challenge; Complete Time: 21:15 cp Administered Medications: 19:08 Drug: TORadol - Ketorolac IVP 15 mg IVP once Route: IVP; Site: right forearm; me1 20:45 Follow up: Pain 6/10 Adult; Response: No adverse reaction; Pain is decreased me1 19:08 Drug: Ondansetron IVP 4 mg IVP once; over 2 minutes Route: IVP; Site: right forearm; me1 20:45 Follow up: Response: No adverse reaction; Nausea is decreased me1 19:09 Drug: NS 0.9% IV 1000 ml IV at 1 bolus Per protocol; to be given as a bolus over 60 me1 minutes Route: IV; Rate: 1 bolus; Site: right forearm; 21:48 Follow up: Response: No adverse reaction; IV Status: Completed infusion; IV Intake: me1 1000ml 21:12 Drug: HYDROcodone-acetaminophen PO 10 mg-325 mg 1 tabs PO once Route: PO; me1 21:41 Follow up: Response: No adverse reaction; Pain is decreased me1 21:12 Drug: Promethazine IVP 25 mg IVP once Route: IVP; Site: right forearm; me1 21:12 Follow up: Response: No adverse reaction me1 Disposition: 11/11 20:22 Co-signature as Attending Physician, Betito Penn MD I agree with the assessment sp4 and plan of care. I reviewed the patient's care provided by the Advanced Practice Provider and agree with the diagnosis and treatment plan. Disposition Summary: 11/10/24 21:35 Discharge Ordered Notes: Location: Home cp Problem: an ongoing problem cp Symptoms: have improved cp Condition: Stable cp Diagnosis - Nausea with vomiting, unspecified cp - Unilateral inguinal hernia, without obstruction or gangrene cp Followup: cp - With: Immanuel Coffman MD - When: Tomorrow - Reason: Recheck today's complaints Discharge Instructions: - Discharge Summary Sheet cp - Nausea and Vomiting, Adult cp - Inguinal Hernia, Adult cp - Laparoscopic Inguinal Hernia Repair, Adult cp Forms: - Medication Reconciliation Form cp - Antibiotic Education cp - Prescription Opioid Use cp - Patient Portal Instructions cp - Leadership Thank You Letter cp Prescriptions: - promethazine 25 mg Oral Tablet - take 1 tablet ORAL route every 6 hours As needed; 20 tablet; Refills: 0, cp Product Selection Permitted Signatures: Dispatcher [employer] EDMS Tim Butler PA PA cp Betito Penn MD MD sp4 Divina Liang RN RN me1
--- NOTE | 2024-11-10 21:36 | ER ---
Nurse's Notes [facility] Name: Herb Zarate Age: 39 yrs Sex: Male : 1985 Arrival Date: 11/10/2024 Time: 18:02 Bed 19 Private MD: Diagnosis: Nausea with vomiting, unspecified;Unilateral inguinal hernia, without obstruction or gangrene Presentation: 11/10 18:34 Chief complaint: Patient states: Seen here earlier today and has RLQ/groin pain, dx me1 w/hernia. Since leaving his pain is worse 10/10 and he is vomiting now. Coronavirus screen: Vaccine status: Patient reports receiving the 2nd dose of the covid vaccine. Date November 10, 2024. Ebola Screen: No symptoms or risks identified at this time. Initial Sepsis Screen: Does the patient meet any 2 criteria? No. Patient's initial sepsis screen is negative. Does the patient have a suspected source of infection? No. Patient's initial sepsis screen is negative. Risk Assessment: Do you want to hurt yourself or someone else? Patient reports no desire to harm self or others. Onset of symptoms is unknown. 18:34 Method Of Arrival: Ambulatory fl1 18:34 Acuity: KEYSHAWN 3 me1 Triage Assessment: 18:36 General: Appears uncomfortable, well groomed, well developed, well nourished, Behavior me1 is calm, cooperative, appropriate for age, Reports pain that is worse to RLQ and groin than earlier today with vomiting associated with pain now. Pain: Complains of pain in right lower quadrant and pelvis Pain does not radiate. Pain currently is 10 out of 10 on a pain scale. Quality of pain is described as dull, squeezing, Pain began gradually, Is continuous. EENT: No signs and/or symptoms were reported regarding the EENT system. Neuro: Level of Consciousness is awake, alert, obeys commands, Oriented to person, place, time, situation, Appropriate for age. Cardiovascular: Patient's skin is warm and dry. Respiratory: Airway is patent Trachea midline Respiratory effort is even, unlabored, Respiratory pattern is regular, symmetrical. GI: Reports lower abdominal pain, nausea, vomiting, Right groin pain, states it feels like "he got hit in the privates". : Reports pain in right lower quadrant(s) right groin. Derm: Skin is intact, is healthy with good turgor, Skin is pink, warm \\T\\ dry. Musculoskeletal: No signs and/or symptoms reported regarding the musculoskeletal system. Historical: - Allergies: 18:36 No Known Allergies; me1 - PMHx: 18:36 Umbilical hernia; me1 - PSHx: 18:36 hernia; me1 - Immunization history:: Adult Immunizations up to date. - Infectious Disease History:: Denies. - Social history:: Smoking status: Reported history of juuling and/or vaping. Screenin:[address] [facility] ED Fall Risk Assessment (Adult) History of falling in the last 3 months, me1 including since admission No falls in past 3 months (0 pts) Confusion or Disorientation No (0 pts) Intoxicated or Sedated No (0 pts) Impaired Gait No (0 pts) Mobility Assist Device Used No (0 pt) Altered Elimination No (0 pt) Score/Fall Risk Level 0 - 2 = Low Risk Maintained a safe environment, Provided non-skid footwear, Hourly rounding (assess needs \\T\\ fall precautionary measures) done. Abuse screen: Denies threats or abuse. Nutritional screening: No deficits noted. Tuberculosis screening: No symptoms or risk factors identified. Assessment: 18:40 Reassessment: See triage assessment. me1 21:47 GI: Bowel sounds present X 4 quads. Abd is soft and non tender X 4 quads. me1 Vital Signs: 18:34 BP 132 / 91; Pulse 64; Resp 17; Temp 97.4; Pulse Ox 100% ; me1 19:00 BP 119 / 82; Pulse 57; Resp 16; Pulse Ox 96% ; me1 20:00 BP 122 / 80; Pulse 59; Resp 14; Pulse Ox 97% ; me1 20:45 Pain 6/10; me1 21:00 BP 127 / 82; Pulse 63; Resp 14; Pulse Ox 96% ; me1 21:30 BP 110 / 78; Pulse 64; Resp 17; Temp 98.4; Pulse Ox 96% on R/A; me1 20:45 Pain Scale: Adult [facility] ED Course: 18:04 Patient arrived in ED. mr 18:23 Tim Butler PA is PHCP. cp 18:23 Bess Wilhelm MD is Attending Physician. cp 18:25 Divina Liang, RN is Primary Nurse. me1 18:36 Triage completed. me1 18:36 Arm band placed on Patient placed in an exam room. me1 18:40 Patient has correct armband on for positive identification. Bed in low position. Call fl1 light in reach. Side rails up X2. Provided Education on: POC. Verbalized understanding.. Client placed on continuous cardiac and pulse oximetry monitoring. NIBP monitoring applied. Pulse ox on. NIBP on. 18:40 No provider procedures requiring assistance completed. me1 19:09 Initial lab(s) drawn, by me, sent to lab. Inserted saline lock: 22 gauge in right me1 forearm, using aseptic technique. 19:47 Urinalysis w/ reflexes Sent. me1 19:47 Urine collected: clean catch specimen, clear. me1 20:02 US Scrotum Testicles In Process Unspecified. EDMS 21:33 Betito Penn MD is Attending Physician. cp 21:34 Immanuel Coffman MD is Referral Physician. cp 21:47 IV discontinued, intact, bleeding controlled, No redness/swelling at site. Pressure me1 dressing applied. Administered Medications: 19:08 Drug: TORadol - Ketorolac IVP 15 mg IVP once Route: IVP; Site: right forearm; me1 20:45 Follow up: Pain 6/10 Adult; Response: No adverse reaction; Pain is decreased me1 19:08 Drug: Ondansetron IVP 4 mg IVP once; over 2 minutes Route: IVP; Site: right forearm; me1 20:45 Follow up: Response: No adverse reaction; Nausea is decreased me1 19:09 Drug: NS 0.9% IV 1000 ml IV at 1 bolus Per protocol; to be given as a bolus over 60 me1 minutes Route: IV; Rate: 1 bolus; Site: right forearm; 21:48 Follow up: Response: No adverse reaction; IV Status: Completed infusion; IV Intake: me1 1000ml 21:12 Drug: HYDROcodone-acetaminophen PO 10 mg-325 mg 1 tabs PO once Route: PO; me1 21:41 Follow up: Response: No adverse reaction; Pain is decreased me1 21:12 Drug: Promethazine IVP 25 mg IVP once Route: IVP; Site: right forearm; me1 21:12 Follow up: Response: No adverse reaction fl1 Medication: 18:40 VIS not applicable for this client. me1 Intake: 21:48 IV: 1000ml; Total: 1000ml. me1 Outcome: 21:35 Discharge ordered by . cp :47 Discharged to home ambulatory, with significant other, me1 :47 Condition: stable :47 Discharge instructions given to patient, significant other, Instructed on discharge instructions, follow up and referral plans. medication usage, Demonstrated understanding of instructions, follow-up care, medications, Prescriptions given X 1, :47 Patient left the ED. me1 Signatures: Dispatcher [employer] EDMS Tiffanie Acosta, Reg Reg mr Tim Butler, PA PA Divina Sanford, RN RN me1
[2024-11-10 22:37] VITALS: O2SAT 96
[2024-11-10 22:38] VITALS: BP 110/78; TEMP 98.4
== END 2024-11-10 21:47 | disposition home or self-care (01) ==
LOC: ER 18:02
DX: K40.90 Unilateral inguinal hernia, without obstruction or gangrene, not specified as recurrent (principal)
CPT/HCPCS: 96361; 85025; 81001; 36415; 83690; 80053; 76870; 96375; 96374; 99284; J2550; J2405; J7030

== ENCOUNTER 2024-11-14 08:03 | Day surgery (SDC) | payer OTHER ==
[2024-11-14] MEDS: Ringers Lactate 1,000 ML IV ONE (08:25)
[2024-11-14] MEDS: FENTANYL CITR 100 MCG/2 ML ONE (09:04)
[2024-11-14] MEDS ORDERED: propofoL 200 MG/20 ML VIAL IV ONE (10:10)
[2024-11-14] MEDS ORDERED: FENTANYL CITR 100 MCG/2 ML ONE ×2 (10:11→10:43)
[2024-11-14] MEDS ORDERED: ROCURONIUM 50 MG/5 ML VIAL IV ONE (10:11)
[2024-11-14] MEDS ORDERED: MIDAZOLAM HCL 2 MG/2 ML INJ ONE (10:11)
[2024-11-14] MEDS ORDERED: SUGAMMADEX SODIUM 200 MG/2 ML VIAL IV ONE (10:23)
[2024-11-14] MEDS: CEFAZOLIN SODIUM 1 GM/VIAL ONE (10:31)
--- NOTE | 2024-11-14 11:08 | P.BOP ---
Preoperative diagnosis: Tender incarcerated right inguinal hernia Postoperative diagnosis: same Primary procedure: Laparoscopi repair Tender incarcerated right inguinal hernia with mesh Quill Winder: Radha Huff (Delia) Estimated blood loss: <10cc Specimen: none Findings: as above, incarcerated omemtum reduced Anesthesia: General Complications: None Drain(s): Other (medium 3d) Transferred to: Recovery Room Condition: Good
[2024-11-14] MEDS ORDERED: ONDANSETRON 4 MG/2 ML VIAL ONE (11:13)
[2024-11-14] MEDS ORDERED: dexAMETHasone 4 MG/ML VIAL ONE (11:13)
[2024-11-14] MEDS ORDERED: GLYCOPYRROLATE 0.2 MG/ML SYR ONE (11:13)
[2024-11-14] MEDS ORDERED: Mastisol Adhesive Liq ONE (11:13)
[2024-11-14] MEDS ORDERED: KETOROLAC 30 MG/ML INJ ONE (11:22)
[2024-11-14] MEDS: HYDROMORPHONE HCL 1 MG/ML INJ ONE (11:28)
[2024-11-14] MEDS: ONDANSETRON 4 MG/2 ML VIAL ONE (12:07)
[2024-11-14] MEDS: HYDROCODONE/APAP 10/325 TAB ONE (12:50)
[2024-11-14] MEDS: dexAMETHasone 4 MG/ML VIAL ONE (13:55)
[2024-11-14 14:16] VITALS: BP 120/64; TEMP 97; O2SAT 96
== END 2024-11-14 14:15 | disposition home or self-care (01) ==
LOC: OR 08:03
PROVIDERS: ATTEND Surgery
PROC: 0YU54JZ Supplement Right Inguinal Region with Synthetic Substitute, Percutaneous Endoscopic Approach (ICD-10-PCS; principal; 2024-11-14 11:15)
DX: K40.30 Unilateral inguinal hernia, with obstruction, without gangrene, not specified as recurrent (principal)
CPT/HCPCS: 49650; J2704; J1100 ×2; J2250; J3010 ×3; J1171; J2405 ×2; J7120; J0690; C1781